=== PATIENT | male | born 1985 | race Caucasian/White ===

== ENCOUNTER 2017-06-02 17:49 | Inpatient (IN) | payer BC ==
--- NOTE | 2017-06-02 18:06 | PDOC ---
Rapid Medical Evaluation Chief Complaint: Injury Time Seen by Provider: 06/02/17 18:03 Medical Evaluation: Vital Signs Temp Pulse Resp BP Pulse Ox 98.1 F 100 H 19 131/83 98 06/02/17 17:59 06/02/17 17:59 06/02/17 17:59 06/02/17 17:59 06/02/17 17:59 06/02/17 18:03 The patient presents with a chief complaint of: Laceration to R cheek. Hit down his face on a metal stair, No LOC, headache. Last tetanus one year ago I have performed a brief in-person evaluation of this patient; Pertinent physical exam findings: 3 cm laceration to R cheek. APOLONIA BRAY I have ordered the following: Nothing The patient will proceed to the ED for further evaluation.
[2017-06-02 18:11] VITALS: BMI 27.3
--- NOTE | 2017-06-02 18:58 | PDOC ---
History of Present Illness <Liliana Lew - Last Filed: 06/02/17 20:57> - General History Source: Patient Exam Limitations: No Limitations - History of Present Illness Initial Comments: 06/02/17 19:00 Patient states was walking down a flight of metal stairs that were slippery and icy with garbage bags in his hands when he slipped and fell forward down multiple stairs, states more than 6 but is uncertain as to amount but thinks may be closer to 1 flight. States landed on his knees and banged his cheek and jaw on the ground or edge of the stair. Denies LOC but states he was dazed at the time. Complaints of mild knee pain bilaterally, and some generalized back and neck pain. Denies crepitus or step-offs, denies deformity numbness or tingling. States is generally in pain but no specific bones. Most complaint is with facial bones and jaw . Now complaints of pain to his right zygomatic arch, TMJ, with a laceration approximately 3 cm. Also has a contusion of his right lower lip but no laceration noted. Occurred: reports: this afternoon Severity: reports: mild, moderate Pain Location: reports: face Method of Injury: Yes: fall Modifying Factors: improves with: None Loss of Consciousness: no loss of consciousness Associated Symptoms (Fall): headache <Na Talbot - Last Filed: 06/03/17 07:29> - General Chief Complaint: Injury Stated Complaint: LACERATION Time Seen by Provider: 06/02/17 18:03 Past History <Liliana Lew - Last Filed: 06/02/17 20:57> - Travel Traveled outside of the country in the last 30 days: No Close contact w/someone who was outside of country & ill: No - Past Medical History COPD: No - Suicide/Smoking/Psychosocial Hx Smoking History: Never smoked Information on smoking cessation initiated: No Hx Alcohol Use: No Drug/Substance Use Hx: No Substance Use Type: None <Na Talbot - Last Filed: 06/03/17 07:29> - Past Medical History Allergies/Adverse Reactions: Allergies Allergy/AdvReac Type Severity Reaction Status Date / Time No Known Allergies Allergy Verified 06/02/17 18:03 Home Medications: Ambulatory Orders Clonazepam [Klonopin -] 0.5 mg PO DAILY 06/02/17 Review of Systems - Review of Systems Able to Perform ROS?: Yes Is the patient limited Citizen [place] proficient: Yes Constitutional: Yes: Symptoms Reported, See HPI, Malaise HEENTM: Yes: Symptoms Reported, See HPI. No: Nose Congestion Musculoskeletal: Yes: Symptoms Reported, See HPI, Joint Pain, Joint Swelling Integumentary: Yes: Symptoms Reported Neurological: Yes: Symptoms reported, See HPI, Headache All Other Systems: Reviewed and Negative <Na Talbot - Last Filed: 06/03/17 07:29> *Physical Exam - Vital Signs Last Vital Signs Temp Pulse Resp BP Pulse Ox 98.1 F 100 H 19 131/83 98 06/02/17 17:59 06/02/17 17:59 06/02/17 17:59 06/02/17 17:59 06/02/17 17:59 <Liliana Lew - Last Filed: 06/02/17 20:57> - Vital Signs Last Vital Signs Temp Pulse Resp BP Pulse Ox 98.1 F 100 H 19 131/83 98 06/02/17 17:59 06/02/17 17:59 06/02/17 17:59 06/02/17 17:59 06/02/17 17:59 - Physical Exam General Appearance: Yes: Nourished, Appropriately Dressed, Apparent Distress, Moderate Distress HEENT: positive: LUZMARIA, Normal ENT Inspection, TMs Normal, Pharynx Normal, Other (3 cm teardrop laceration to right mid zygomatic arch. Extending from inner canthus under eye to outer canthus, no bony deformity noted however has swelling and tenderness at the lateral aspect of zygomatic arch and TMJ Carbajal. No crepitus or step-offs, no nasal deformity, no orbital tenderness or crepitus. ) Neck: positive: Tender, Trachea midline, Supple (has muscular tnederness marie paravertebral spinous muscles. No true bone tenderness or crepitus along cervical spine but states is history of cervical disc herniation with intermittent tenderness history). negative: Lymphadenopathy (R), Lymphadenopathy (L) Respiratory/Chest: positive: Lungs Clear. negative: Normal Breath Sounds, Respiratory Distress Cardiovascular: positive: Regular Rate Gastrointestinal/Abdominal: positive: Soft. negative: Tender Musculoskeletal: positive: Normal Inspection, Other (superficial contusion to bilateral knees, no crepitus or step-offs, full range of motion and ambulatory without limp). negative: CVA Tenderness, Muscle Spasm (tenderness along cervical spine, history of cervical spine herniation but states does not feel re -exacerbation of that pain but has stiffness secondary to) Extremity: positive: Normal Capillary Refill, Normal Inspection, Normal Range of Motion Integumentary: positive: Normal Color, Other (facial laceration swelling and tenderness to right zygomatic arch. Has tenderness reproduced along the TMJ, and angle of mandible unable to open mouth completely secondary to pain at same. 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 NML intact, Fully Oriented, Alert, Normal Mood/ Affect, Normal Response, Motor Strength 5/5 <Na Talbot - Last Filed: 06/03/17 07:29> Procedures - Laceration/Wound Repair Right Face Wound Length: 2.6 to 5.0 cm Wound Explored: clean Wound's Depth, Shape: linear, flap Irrigated w/ Saline: Yes Betadine Prep: Yes Anesthesia: 1% Lidocaine Wound Repaired With: Sutures Suture Size/Type: 6:0 Number of Sutures: 10 <Na Talbot - Last Filed: 06/03/17 07:29> ED Treatment Course - Medications Given in the ED: ED Medications Discontinued Medications Generic Name Dose Route Start Last Admin Trade Name Ortizq PRN Reason Stop Dose Admin Ketorolac Tromethamine 60 mg 06/02/17 18:59 06/02/17 19:32 Toradol Injection - IM 06/02/17 19:00 60 mg ONCE ONE Administration <Liliana Lew - Last Filed: 06/02/17 20:57> - LABORATORY CBC & Chemistry Diagram: 06/03/17 00:00 06/03/17 00:00 <Na Talbot - Last Filed: 06/03/17 07:29> Progress Note - Progress Note Progress Note: Status post fall multiple stairs with facial injury and laceration. Suture repair performed, pending CAT scan of facial bones and head. Patient medicated with Toradol IM for pain relief. Case was turned over to our Mike TRIVEDI for remainder of testing and discharge planning. Updated patientr to plan <Na Talbot - Last Filed: 06/03/17 07:29> *DC/Admit/Observation/Transfer <Liliana Lew - Last Filed: 06/02/17 20:57> <Na Talbot - Last Filed: 06/03/17 07:29> Diagnosis at time of Disposition: Focal hemorrhagic contusion of cerebrum Facial laceration Qualifiers: Encounter type: initial encounter Qualified Code(s): S01.81XA - Laceration without foreign body of other part of head, initial encounter Superficial injury head Qualifiers: Encounter type: initial encounter Qualified Code(s): S00.90XA - Unspecified superficial injury of unspecified part of head, initial encounter Fall Qualifiers: Encounter type: initial encounter Qualified Code(s): W19.XXXA - Unspecified fall, initial encounter - Discharge Dispostion Condition at time of disposition: Stable
[2017-06-02] MEDS ORDERED: KETOROLAC TROMETHAMINE 60 MG/2 ML VIAL IM ONE (18:59)
[2017-06-02] MEDS ORDERED: KETOROLAC TROMETHAMINE 60 MG/2 ML VIAL ONE (19:28)
--- NOTE | 2017-06-02 21:45 | PDOC ---
ED Treatment Course - RADIOLOGY Radiology Studies Ordered: Category Date Time Status CERVICAL SPINE MRI W/O CONTR [MRI] Stat MRI 06/02/17 21:23 Ordered - Medications Given in the ED: ED Medications Discontinued Medications Generic Name Dose Route Start Last Admin Trade Name Jaydon PRN Reason Stop Dose Admin Ketorolac Tromethamine 60 mg 06/02/17 18:59 06/02/17 19:32 Toradol Injection - IM 06/02/17 19:00 60 mg ONCE ONE Administration Progress Note - Progress Note Progress Note: Took sign out on this patient from CHRIS Talbot. Pt fell down more than 6 stairs landing mostly on his face. Has tear drop laceration under right eye that was repaired by CHRIS Talbot. Is complaining of some right arm/shoulder numbness. Awaiting on facial bone and head CT. Head/Facial bone CT IMPRESSION: Subcentimeter hyperdensity within the inferior left frontal lobe is suspicious for acute hemorrhagic contusion. No mass effect, midline shift or hydrocephalus. No evidence of acute facial bone fracture. Intact mandibles and temporomandibular joints. Spoke with Dr. Morales, Neuro surgeon contract agent, and he reviewed the CT scan. He would like the patient to have a stat MRI of the cervical spine and to be admitted to Dr. Narayanan. Call placed to Dr. Narayanan for admission. Dr. Narayanan admits to hospitalist. [facility] hospitalist. Patient brought to MRI for stat MRI, approved by the MRI department. MRI cervical spine IMPRESSION: No evidence of acute injury to the major stabilizing ligaments in the cervical spine. Anatomic alignment of the cervical vertebra. Disc herniations at C3-C4 and C5-C6. No significant canal stenosis. No cervical cord compression. Ordered 2 percocet for pain. Spoke with CHRIS Gates who accepts admission for Dr. Castle. Dr. Morales in for consult. Pt signed out to CHRIS Levy in the main ER to continue plan. Nurse Jorge made aware as well. *DC/Admit/Observation/Transfer Diagnosis at time of Disposition: Focal hemorrhagic contusion of cerebrum Facial laceration Qualifiers: Encounter type: initial encounter Qualified Code(s): S01.81XA - Laceration without foreign body of other part of head, initial encounter Superficial injury head Qualifiers: Encounter type: initial encounter Qualified Code(s): S00.90XA - Unspecified superficial injury of unspecified part of head, initial encounter Fall Qualifiers: Encounter type: initial encounter Qualified Code(s): W19.XXXA - Unspecified fall, initial encounter - Discharge Dispostion Condition at time of disposition: Stable Admit: Yes - Referrals Referrals: Jeremiah Rodríguez [Primary Care Provider] - - Patient Instructions Additional Instructions: Keep wound clean and dry Avoid strenuous activity/exercise to create a hot or sweaty environment until sutures are removed Reapply bacitracin ointment 2 times a day until sutures are removed Return to emergency Department or private physician in 5-7 days for suture removal May use Tylenol or Motrin for pain relief Return immediately to emergency department for redness, swelling, pain, or signs of infection Rest, avoid strenuous activity or exercise for the next 24-48 hours May use ice on contusions as needed. May use Tylenol or Motrin for pain relief Watch and seek evaluation for changes in behavior including crankiness, inconsolability, quietness/ sleepiness that is inappropriate, tiredness that is inappropriate, watch for worsening and changes of behavior. Seek immediate evaluation/return to emergency department for vomiting, mental status changes, pain that's out of proportion , bloody drainage from ears or nose. Followup with private physician as needed in one to 2 days for reevaluation - Post Discharge Activity Forms/Work/School Notes: Back to Work
[2017-06-03 01:19] LABS: BASO % 0.8 % (0-2.0); EOS % 0.4 % (0-4.5); HEMATOCRIT 40.3 % (35.4-49); HEMOGLOBIN 13.1 GM/dL (11.7-16.9); LYMPH % 20.3 % (8-40); MCH 25.9 pg (25.7-33.7); MCHC 32.5 g/dl (32.0-35.9); MEAN CELL VOLUME 79.6 fl (80-96); MEAN PLT VOLUME 7.8 fl (7.5-11.1); MONO % 7.7 % (3.8-10.2); NEUT % 70.8 % (42.8-82.8); PLATELET COUNT 277 K/MM3 (134-434); RBC 5.07 M/mm3 (4.00-5.60); RDW 14.4 % (11.9-15.9); WHITE BLOOD COUNT 12.9 K/mm3 (4.0-10.0)
[2017-06-03 01:33] LABS: INR 1.04 (0.82-1.09); PROTHROMBIN TIME (PATIENT) 11.8 SEC (9.98-11.88)
[2017-06-03 01:57] LABS: ALBUMIN 3.7 g/dl (3.4-5.0); ANION GAP 7 (8-16); BLOOD UREA NITROGEN 14 mg/dL (7-18); CALCIUM 8.7 mg/dL (8.5-10.1); CHLORIDE 103 mmol/L (98-107); CO2 28 mmol/L (21-32); GLUCOSE,RANDOM 95 mg/dL (74-106); POTASSIUM 3.6 mmol/L (3.5-5.1); SGOT/AST 16 U/L (15-37); SGPT/ALT 28 U/L (12-78); SODIUM 138 mmol/L (136-145)
[2017-06-03 02:00] LABS: ALK PHOS 105 U/L (45-117); BILIRUBIN,TOTAL 0.7 mg/dL (0.2-1.0); TOT PROT 7.3 g/dl (6.4-8.2)
--- NOTE | 2017-06-03 04:02 | HP ---
CHIEF COMPLAINT: Fall PCP: Dr. Jeremiah Rodríguez HISTORY OF PRESENT ILLNESS: This is a 31 y/o man with a past medial history of Anxiety, Insomnia. Who presents to the ED s/p fall down stairs with a laceration/head injury x 1 day. Patient reports slipping down the stairs while taking out the garbage. Patient reports falling forward and hitting his face/head. He reports back and neck pain. Patient denies LOC, blurred vision, nausea, vomiting, headache. Patient denies fever, chills, cough, SOB, CP, palpitations, AP, N/V/D. TD is UTD per patient ER course was notable for: (1) Head CT- Subcentimeter hyperdensity within the inferior lobe is suspicious for acute hemorrhagic contusion, Janet mass effect, midline shift or hydrocephalus (2) Facial bones CT: No evidence of acute facial bone fracture. 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 Family History: Father: HLD Grandfather: CAD, DM Grandmother: HTN Allergies No Known Allergies Allergy (Verified 06/02/17 18:03) HOME MEDICATIONS: Home Medications Medication Instructions Recorded Clonazepam [Klonopin -] 0.5 mg PO DAILY 06/02/17 REVIEW OF SYSTEMS CONSTITUTIONAL: Absent: fever, chills, diaphoresis, generalized weakness, malaise, loss of appetite, weight change HEENT: Absent: rhinorrhea, nasal congestion, throat pain, throat swelling, difficulty swallowing, mouth swelling, ear pain, eye pain, visual changes CARDIOVASCULAR: Absent: chest pain, syncope, palpitations, irregular heart rate, lightheadedness , peripheral edema RESPIRATORY: Absent: cough, shortness of breath, dyspnea with exertion, orthopnea, wheezing, stridor, hemoptysis GASTROINTESTINAL: Absent: abdominal pain, abdominal distension, nausea, vomiting, diarrhea, constipation, melena, hematochezia GENITOURINARY: Absent: dysuria, frequency, urgency, hesitancy, hematuria, flank pain, genital pain MUSCULOSKELETAL: neck pain, back pain, R-shoulder pain Absent: myalgia, arthralgia, joint swelling SKIN: laceration to R-orbit Absent: rash, itching, pallor HEMATOLOGIC/IMMUNOLOGIC: Absent: easy bleeding, easy bruising, lymphadenopathy, frequent infections ENDOCRINE: Absent: unexplained weight gain, unexplained weight loss, heat intolerance, cold intolerance NEUROLOGIC: paresthesias Absent: headache, focal weakness, dizziness, unsteady gait, seizure, mental status changes, bladder or bowel incontinence PSYCHIATRIC: Absent: anxiety, depression, suicidal or homicidal ideation, hallucinations. PHYSICAL EXAMINATION Vital Signs - 24 hr 06/02/17 06/02/17 06/03/17 17:59 23:14 03:03 Temperature 98.1 F Pulse Rate 100 H Pulse Rate [ 96 H 88 Left Radial] Respiratory 19 20 15 Rate Blood Pressure 131/83 Blood Pressure 128/69 130/76 [Left Arm] O2 Sat by Pulse 98 98 98 Oximetry (%) GENERAL: Awake, alert, and fully oriented, in no acute distress. HEAD: Normal with no signs of trauma. EYES: Pupils equal, round and reactive to light, extraocular movements intact, sclera anicteric, conjunctiva clear. No lid lag. EARS, NOSE, THROAT: Ears normal, nares patent, oropharynx clear without exudates. Moist mucous membranes. NECK: Normal range of motion, supple without lymphadenopathy, JVD, or masses. LUNGS: Breath sounds equal, clear to auscultation bilaterally. No wheezes, and no crackles. No accessory muscle use. HEART: Regular rate and rhythm, normal S1 and S2 without murmur, rub or gallop. ABDOMEN: Soft, nontender, not distended, normoactive bowel sounds, no guarding, no rebound, no masses. No hepatomegaly or splenomegaly. MUSCULOSKELETAL: Normal range of motion at all joints. No bony deformities. No CVA tenderness. mid scapula tenderness UPPER EXTREMITIES: 2+ pulses, warm, well-perfused. No cyanosis. No clubbing. No peripheral edema. LOWER EXTREMITIES: 2+ pulses, warm, well-perfused. No calf tenderness. No peripheral edema. NEUROLOGICAL: Cranial nerves II-XII intact. Normal speech. Gait not observed. PSYCHIATRIC: Cooperative. Good eye contact. Appropriate mood and affect. SKIN: Warm, dry, normal turgor, normal capillary refill. +teardrop wound to r- orbit- sutures intact Laboratory Results - last 24 hr 06/03/17 06/03/17 06/03/17 00:00 00:00 00:00 WBC 12.9 H RBC 5.07 Hgb 13.1 Hct 40.3 MCV 79.6 L MCH 25.9 MCHC 32.5 RDW 14.4 Plt Count 277 MPV 7.8 Neutrophils % 70.8 Lymphocytes % 20.3 Monocytes % 7.7 Eosinophils % 0.4 Basophils % 0.8 PT with INR 11.80 INR 1.04 Sodium 138 Potassium 3.6 Chloride 103 Carbon Dioxide 28 Anion Gap 7 L BUN 14 Creatinine 1.0 Creat Clearance w eGFR > 60 Random Glucose 95 Calcium 8.7 Total Bilirubin 0.7 AST 16 ALT 28 Alkaline Phosphatase 105 Total Protein 7.3 Albumin 3.7 Blood Type Antibody Screen 06/03/17 00:00 WBC RBC Hgb Hct MCV MCH MCHC RDW Plt Count MPV Neutrophils % Lymphocytes % Monocytes % Eosinophils % Basophils % PT with INR INR Sodium Potassium Chloride Carbon Dioxide Anion Gap BUN Creatinine Creat Clearance w eGFR Random Glucose Calcium Total Bilirubin AST ALT Alkaline Phosphatase Total Protein Albumin Blood Type O POSITIVE Antibody Screen Negative ASSESSMENT/PLAN: 31 y/o man with a PMHx Anxiety, Insomnia. Admitted to Telemetry ? Acute Hemorrhagic Contusion, secondary to fall. Head Injury Problem 1. Head Injury secondary to Fall 2. Acute Hemorrhagic Contusion 3. Acute Lumbar Pain 4. R- face/jaw pain 5. Anxiety/Insomnia 6. Leukocytosis Plan: Acute Hemorrhagic Contusion Continue Tele monitoring CT Brain- reviewed CT Facial Bones- reviewed MRI c-Spine- reviewed Appreciate Neurology and Neurosurgery consults Icepack to face q20min off/on Neuro checks Monitor vitals Repeat CBC tomorrow, likely reactive, will no treat empirically. Patient does not appear toxic DVT Prophylaxis- SCDs, Heparin SQ Problem List - Problem (1) Focal hemorrhagic contusion of cerebrum Code(s): S06.339A - CONTUS/LAC CEREB, W LOC OF UNSP DURATION, INIT (2) Fall Code(s): W19.XXXA - UNSPECIFIED FALL, INITIAL ENCOUNTER Qualifiers: Encounter type: initial encounter Qualified Code(s): W19.XXXA - Unspecified fall, initial encounter (3) Facial laceration Code(s): S01.81XA - LACERATION W/O FOREIGN BODY OF OTH PART OF HEAD, INIT ENCNTR Qualifiers: Encounter type: initial encounter Qualified Code(s): S01.81XA - Laceration without foreign body of other part of head, initial encounter (4) Anxiety Code(s): F41.9 - ANXIETY DISORDER, UNSPECIFIED (5) DVT prophylaxis Code(s): [id number] - Visit type - Emergency Visit Emergency Visit: Yes ED Registration Date: 06/02/17 Care time: The patient presented to the Emergency Department on the above date and was hospitalized for further evaluation of their emergent condition. - New Patient This patient is new to me today: Yes Date on this admission: 06/03/17 - Critical Care Critical Care patient: No
[2017-06-03] MEDS ORDERED: DEXTROSE 5%-0.45% SALINE 1,000 ML IV SCH (04:15)
[2017-06-03] MEDS ORDERED: morphine CARPU-JECT 2 MG/1 ML DISP.SYRIN IVPUSH PRN (05:20)
[2017-06-03] MEDS ORDERED: ONDANSETRON 4 MG/2 ML VIAL IVPUSH PRN (05:21)
--- NOTE | 2017-06-03 09:40 | EKG ---
Test Reason : Blood Pressure : / mmHG Vent. Rate : 071 BPM Atrial Rate : 071 BPM P-R Int : 168 ms QRS Dur : 092 ms QT Int : 416 ms P-R-T Axes : 050 049 019 degrees QTc Int : 452 ms NORMAL SINUS RHYTHM EARLY REPOLARIZATION NORMAL ECG NO PREVIOUS ECGS AVAILABLE Confirmed by MD MARIE, MARY JANE ([id number]) on 06/03/2017 9:39:46 AM Referred By: Confirmed By:MARY JANE SALAZAR MD
[2017-06-03] MEDS: morphine CARPU-JECT 10 MG/1 ML DISP.SYRIN IVPUSH PRN ×2 (10:40→15:27)
[2017-06-03] MEDS ORDERED: BACITRACIN 15 GM TUBE TOPICAL OINTMENT ONE (12:09)
[2017-06-03] MEDS ORDERED: clonazePAM 0.5 MG TABLET PO PRN (13:03)
--- NOTE | 2017-06-03 13:04 | PN ---
Progress Note, Physician Chief Complaint: patient s/p fall going down the stairs hit his head has a face laceration and snow shoulder discomfort no MUNOZ ambulating the hallways down graded to med surg floor - Current Medication List Current Medications: Active Medications Dextrose/Sodium Chloride (D5-1/2ns -) 1,000 mls @ 83 mls/hr IV ASDIR YAMIL Last Admin: 06/03/17 05:05 Dose: 83 mls/hr Morphine Sulfate (Morphine Injection -) 2 mg IVPUSH Q4H PRN PRN Reason: PAIN LEVEL 4 - 6 Last Admin: 06/03/17 10:40 Dose: 2 mg Ondansetron HCl (Zofran Injection) 4 mg IVPUSH Q6H PRN PRN Reason: NAUSEA - Objective Vital Signs: Vital Signs Temperature 98.1 F 06/02/17 17:59 Pulse Rate 96 H 06/03/17 07:00 Respiratory Rate 18 06/03/17 07:00 Blood Pressure 101/57 06/03/17 07:00 O2 Sat by Pulse Oximetry (%) 97 06/03/17 07:00 Constitutional: Yes: Calm HENT: Yes: Other (facial laceration sutured) Cardiovascular: Yes: Regular Rate and Rhythm, S1, S2 Respiratory: Yes: CTA Bilaterally Gastrointestinal: Yes: Normal Bowel Sounds, Soft Edema: No Neurological: Yes: Alert, Oriented Labs: CBC, BMP 06/03/17 00:00 06/03/17 00:00 INR, PTT INR 1.04 (0.82-1.09) 06/03/17 00:00 Problem List - Problems (1) Focal hemorrhagic contusion of cerebrum Assessment/Plan: neurology and ANDREA consult pending MRI of neck shows disc bulge which according to patient is old Head CT scan shows hyderdensity which suspicious for hemorrhagic contusion possible discharge later today if cleared by both services Code(s): S06.339A - CONTUS/LAC CEREB, W LOC OF UNSP DURATION, INIT (2) Anxiety Assessment/Plan: klonopin Code(s): F41.9 - ANXIETY DISORDER, UNSPECIFIED (3) Facial laceration Assessment/Plan: sutured Code(s): S01.81XA - LACERATION W/O FOREIGN BODY OF OTH PART OF HEAD, INIT ENCNTR Qualifiers: Encounter type: initial encounter Qualified Code(s): S01.81XA - Laceration without foreign body of other part of head, initial encounter
--- NOTE | 2017-06-03 13:08 | DS ---
Physical Examination Vital Signs: Vital Signs Temperature 98.1 F 06/02/17 17:59 Pulse Rate 96 H 06/03/17 07:00 Respiratory Rate 18 06/03/17 07:00 Blood Pressure 101/57 06/03/17 07:00 O2 Sat by Pulse Oximetry (%) 97 06/03/17 07:00 Constitutional: Yes: Calm HENT: Yes: Other (facial laceration sutured) Cardiovascular: Yes: Regular Rate and Rhythm, S1, S2 Respiratory: Yes: CTA Bilaterally Gastrointestinal: Yes: Normal Bowel Sounds, Soft Edema: No Neurological: Yes: Alert, Oriented Labs: CBC, BMP 06/03/17 00:00 06/03/17 00:00 Discharge Summary Reason For Visit: FALL,FOCAL HEMMORHAGIC CONSTUSION OF CEREBRUM Current Active Problems Anxiety (Acute) DVT prophylaxis (Acute) Facial laceration (Acute) Fall (Acute) Focal hemorrhagic contusion of cerebrum (Acute) Superficial injury head (Acute) Hospital Course: CHIEF COMPLAINT: Fall PCP: Dr. Jeremiah Rodríguez HISTORY OF PRESENT ILLNESS: This is a 31 y/o man with a past medial history of Anxiety, Insomnia. Who presents to the ED s/p fall down stairs with a laceration/head injury x 1 day. Patient reports slipping down the stairs while taking out the garbage. Patient reports falling forward and hitting his face/head. He reports back and neck pain. Patient denies LOC, blurred vision, nausea, vomiting, headache. Patient denies fever, chills, cough, SOB, CP, palpitations, AP, N/V/D. TD is UTD per patient ER course was notable for: (1) Head CT- Subcentimeter hyperdensity within the inferior lobe is suspicious for acute hemorrhagic contusion, Janet mass effect, midline shift or hydrocephalus (2) Facial bones CT: No evidence of acute facial bone fracture. 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 Family History: Father: HLD Grandfather: CAD, DM Grandmother: HTN Allergies No Known Allergies Allergy (Verified 06/02/17 18:03) in hospital : facial laceration sutured ct head done shows hyperdensity suspiciuos for hemorrhagic contusion mri of spine noted for neck bulge patient ambulation the hallways no MUNOZ no neck pain ANDREA and Neurology to see patient Condition: Stable - Instructions Diet, Activity, Other Instructions: Keep wound clean and dry Avoid strenuous activity/exercise to create a hot or sweaty environment until sutures are removed Reapply bacitracin ointment 2 times a day until sutures are removed Return to emergency Department or private physician in 5-7 days for suture removal May use Tylenol or Motrin for pain relief Return immediately to emergency department for redness, swelling, pain, or signs of infection Rest, avoid strenuous activity or exercise for the next 24-48 hours May use ice on contusions as needed. May use Tylenol or Motrin for pain relief Watch and seek evaluation for changes in behavior including crankiness, inconsolability, quietness/ sleepiness that is inappropriate, tiredness that is inappropriate, watch for worsening and changes of behavior. Seek immediate evaluation/return to emergency department for vomiting, mental status changes, pain that's out of proportion , bloody drainage from ears or nose. Followup with private physician as needed in one to 2 days for reevaluation Referrals: Jeremiah Rodríguez [Primary Care Provider] - - Home Medications Comprehensive Discharge Medication List: Ambulatory Orders Clonazepam [Klonopin -] 0.5 mg PO DAILY 06/02/17
[2017-06-03] MEDS ORDERED: clonazePAM 0.5 MG TABLET ONE (13:26)
[2017-06-03] MEDS ORDERED: morphine CARPU-JECT 10 MG/1 ML DISP.SYRIN ONE (15:26)
--- NOTE | 2017-06-03 15:39 | CONSULT ---
Consult - text type - Consultation Consultation Note: Neurosurgery Consultation Gael Kimbrough is a 31 year old Latin male who fell yesterday on icy, metal stairs while taking out the trash. He denies loss of consciousness, but was somewhat woozy afterwards. He had a recent laceration on his Right malar eminence which was closed with adhesive strips and this opened up after the fall. Head CT demonstrated a small Left inferior frontal hyperdensity which may be a contusion versus volume averaging from a supraorbital ridge. Patient was observed for one day and repeat CT was unremarkable. The patient also describes neck pain with some radiation to his Right upper extremity. The patient has a 2 year history of Right arm radicular pain which has not responded to conservative efforts. He has Right C8 numbness and some triceps weakness. MRI Cervical is limited quality due to motion artifact, however Right and Left sided herniated discs are noted. I feel that the patient can be discharged and I will see him in the office next month to discuss better quality imaging of the Cervical spine and the risks, benefits and alternatives to ACDF which would likely relieve his chronic Right arm radicular pain associated with numbness and paresthesias as well as Right arm weakness. The patient verbalizes an understanding and has been given contact information.
--- NOTE | 2017-06-03 15:39 | CONSULT ---
Consult - text type - Consultation Consultation Note: Neurology History of Present Illness 31 y/o M was walking down a flight of metal stairs that were slippery and icy with garbage bags in his hands when he slipped and fell forward down multiple stairs, states more than 6 but is uncertain as to amount but thinks may be closer to 1 flight. Stated that he landed on his knees and banged his cheek and jaw on the ground or edge of the stair. Denies LOC but states he was dazed at the time. CT head was completed and showed L frontal contusion. Complaints of mild knee pain bilaterally, and some generalized back and neck pain. Has laceration approximately 3 cm. Also has a contusion of his right lower lip but no laceration noted. CT facial bones also completed and did not show any fracture. MRI C spine done and reviewed and showed disc herniations of C3/C4 and C5/C6 which the patient believed was old. Past History - Travel Traveled outside of the country in the last 30 days: No Close contact w/someone who was outside of country & ill: No - Past Medical History COPD: No - Suicide/Smoking/Psychosocial Hx Smoking History: Never smoked Information on smoking cessation initiated: No Hx Alcohol Use: No Drug/Substance Use Hx: No Substance Use Type: None - Past Medical History Allergies/Adverse Reactions: Allergies Allergy/AdvReac Type Severity Reaction Status Date / Time No Known Allergies Allergy Verified 06/02/17 18:03 Home Medications: Ambulatory Orders Clonazepam [Klonopin -] 0.5 mg PO DAILY 06/02/17 Review of Systems - Review of Systems Able to Perform ROS?: Yes Is the patient limited Indonesian proficient: Yes Constitutional: Yes: Symptoms Reported, See HPI, Malaise HEENTM: Yes: Symptoms Reported, See HPI. No: Nose Congestion Musculoskeletal: Yes: Symptoms Reported, See HPI, Joint Pain, Joint Swelling Integumentary: Yes: Symptoms Reported Neurological: Yes: Symptoms reported, See HPI, Headache All Other Systems: Reviewed and Negative *Physical Exam Vital Signs Period Temp Pulse Resp BP Sys/Ledezma Pulse Ox Last 24 Hr 98.1 F-98.2 F 79-100 15-20 101-131/57-83 97-98 - Physical Exam General Appearance: Yes: Nourished, Appropriately Dressed, Apparent Distress, Moderate Distress HEENT: positive: LUZMARIA, Normal ENT Inspection, TMs Normal, Pharynx Normal, Other (3 cm teardrop laceration to right mid zygomatic arch. Extending from inner canthus under eye to outer canthus, no bony deformity noted however has swelling and tenderness at the lateral aspect of zygomatic arch and TMJ Carbajal. No crepitus or step-offs, no nasal deformity, no orbital tenderness or crepitus. ) Neck: positive: Tender, Trachea midline, Supple (has muscular tnederness marie paravertebral spinous muscles. No true bone tenderness or crepitus along cervical spine but states is history of cervical disc herniation with intermittent tenderness history). negative: Lymphadenopathy (R), Lymphadenopathy (L) Respiratory/Chest: positive: Lungs Clear. negative: Normal Breath Sounds, Respiratory Distress Cardiovascular: positive: Regular Rate Gastrointestinal/Abdominal: positive: Soft. negative: Tender Musculoskeletal: positive: Normal Inspection, Other (superficial contusion to bilateral knees, no crepitus or step-offs, full range of motion and ambulatory without limp). negative: CVA Tenderness, Muscle Spasm (tenderness along cervical spine, history of cervical spine herniation but states does not feel re -exacerbation of that pain but has stiffness secondary to) Extremity: positive: Normal Capillary Refill, Normal Inspection, Normal Range of Motion Integumentary: positive: Normal Color, Other (facial laceration swelling and tenderness to right zygomatic arch. Has tenderness reproduced along the TMJ, and angle of mandible unable to open mouth completely secondary to pain at same. 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: financial analyst II-XII NML intact, Fully Oriented, Alert, Normal Mood/ Affect, Normal Response, Motor Strength 5/5 CBCD WBC 12.9 K/mm3 (4.0-10.0) H 06/03/17 00:00 RBC 5.07 M/mm3 (4.00-5.60) 06/03/17 00:00 Hgb 13.1 GM/dL (11.7-16.9) 06/03/17 00:00 Hct 40.3 % (35.4-49) 06/03/17 00:00 MCV 79.6 fl (80-96) L 06/03/17 00:00 MCHC 32.5 g/dl (32.0-35.9) 06/03/17 00:00 RDW 14.4 % (11.9-15.9) 06/03/17 00:00 Plt Count 277 K/MM3 (134-434) 06/03/17 00:00 MPV 7.8 fl (7.5-11.1) 06/03/17 00:00 CMP Sodium 138 mmol/L (136-145) 06/03/17 00:00 Potassium 3.6 mmol/L (3.5-5.1) 06/03/17 00:00 Chloride 103 mmol/L (98-107) 06/03/17 00:00 Carbon Dioxide 28 mmol/L (21-32) 06/03/17 00:00 Anion Gap 7 (8-16) L 06/03/17 00:00 BUN 14 mg/dL (7-18) 06/03/17 00:00 Creatinine 1.0 mg/dL (0.7-1.3) 06/03/17 00:00 Creat Clearance w eGFR > 60 (>60) 06/03/17 00:00 Calcium 8.7 mg/dL (8.5-10.1) 06/03/17 00:00 Total Bilirubin 0.7 mg/dL (0.2-1.0) 06/03/17 00:00 AST 16 U/L (15-37) 06/03/17 00:00 ALT 28 U/L (12-78) 06/03/17 00:00 Alkaline Phosphatase 105 U/L (45-117) 06/03/17 00:00 Total Protein 7.3 g/dl (6.4-8.2) 06/03/17 00:00 Albumin 3.7 g/dl (3.4-5.0) 06/03/17 00:00 CT head, MRI C spine, CT facial bones reviewed as above Plan: 31 y/o M was walking down a flight of metal stairs that were slippery and icy with garbage bags in his hands when he slipped and fell forward down multiple stairs, states more than 6 but is uncertain as to amount but thinks may be closer to 1 flight. Stated that he landed on his knees and banged his cheek and jaw on the ground or edge of the stair. Denies LOC but states he was dazed at the time. CT head was completed and showed L frontal contusion. Complaints of mild knee pain bilaterally, and some generalized back and neck pain. Has laceration approximately 3 cm. Also has a contusion of his right lower lip but no laceration noted. CT facial bones also completed and did not show any fracture. MRI C spine done and reviewed and showed disc herniations of C3/C4 and C5/C6 which the patient believed was old. NSGY consulted as well. Patient asymptomatic, assuming no NSGY intervention, would recommended repeat CT head in 2-4 weeks. Can have outpatient followup. Would emphasize strict avoidance any further head trauma. Caution with slip and falls, avoid heavy lifting. Avoid NSAIDS for 2 weeks. Can take Tylenol for headache if needed.
[2017-06-03 15:42] VITALS: BP 123/78; PULSE 72; TEMP 98.3
== END 2017-06-03 16:00 | disposition home or self-care (01) | DRG 604 ==
LOC: JERFT 17:49 → JER 17:49 → JERBED 22:32 → J6S 23:38 → JERBED 06-03 05:09
PROVIDERS: ADMIT Family Medicine; ATTEND Family Medicine
PROC: 0HQ1XZZ Repair Face Skin, External Approach (ICD-10-PCS; principal; 2017-06-02)
DX: S01.411A Laceration without foreign body of right cheek and temporomandibular area, initial encounter (principal); S06.331A Contusion and laceration of cerebrum, unspecified, with loss of consciousness of 30 minutes or less, initial encounter; W01.190A Fall on same level from slipping, tripping and stumbling with subsequent striking against furniture, initial encounter; Y93.89 Activity, other specified; Y92.89 Other specified places as the place of occurrence of the external cause; Y99.8 Other external cause status; F41.9 Anxiety disorder, unspecified; G47.00 Insomnia, unspecified; M54.5 Low back pain; D72.829 Elevated white blood cell count, unspecified
CPT/HCPCS: 36415; 70450-TC; 70486-TC; 72141-TC; 80053; 85025; 85610; 86850; 86900; 86901; 93005; 93010; 99285-25

== ENCOUNTER 2017-10-04 01:12 | Emergency (ER) | payer BC, OTHER ==
[2017-10-04 02:21] VITALS: BP 121/90; PULSE 86; TEMP 96.8; BMI 28.0
[2017-10-04] MEDS ORDERED: ACETAMINOPHEN 325 MG TABLET (FP) PO ONE (02:50)
--- NOTE | 2017-10-04 02:51 | PDOC ---
History of Present Illness - General Chief Complaint: Injury Stated Complaint: INJURY ELBOW SHOULDER BACK Time Seen by Provider: 10/04/17 02:38 History Source: Patient Exam Limitations: No Limitations - History of Present Illness Initial Comments: 10/04/17 02:51 32y hx of cervical disc herniations, presents with complaint of back p ain and elbow pain. 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 pt compliaining of pain to r hip and r elbow. pt denies any numbness/tingling/ weakness. no head injury, LOC, n/v, vision changes, cp, sob, abd pain. Past History - Past Medical History Allergies/Adverse Reactions: Allergies Allergy/AdvReac Type Severity Reaction Status Date / Time No Known Allergies Allergy Verified 10/04/17 02:21 Home Medications: Ambulatory Orders clonazePAM [Klonopin -] 0.5 mg PO DAILY 06/02/17 COPD: No - Suicide/Smoking/Psychosocial Hx Smoking History: Never smoked Have you smoked in the past 12 months: No Information on smoking cessation initiated: No Hx Alcohol Use: Yes Drug/Substance Use Hx: No Substance Use Type: None Review of Systems - Review of Systems Able to Perform ROS?: Yes Comments:: 10/04/17 03:01 HEENT: no reported vision changes Respiratory: no reported cough, sob, hemoptysis Cardiac: no reported chest pain, palpitations, light headedness, leg swelling Abd/GI: no reported abd pain, nausea, vomiting, Musculskelatal - +r elbow pain, r lower back pain no reported joint swelling skin - no reported bruising, erythema, rash neurological: no reported headache, numbness, focal weakness, tingling, ataxia, *Physical Exam - Vital Signs Last Vital Signs Temp Pulse Resp BP Pulse Ox 96.8 F L 86 18 121/90 99 10/04/17 02:18 10/04/17 02:18 10/04/17 02:18 10/04/17 02:18 10/04/17 02:18 - Physical Exam Comments: 10/04/17 03:01 GENERAL: The patient is awake, alert, and fully oriented, Nontoxic - in no acute distress. HEAD: Normocephalic, atraumatic. EYES: extraocular movements intact, sclera anicteric, conjunctiva clear. ENT: Normal voice, Moist mucous membranes. NECK: Normal range of motion, supple BACK: No focal bony tenderness in thoracic, lumbar, cervical spine. +parspinal tenderness on r lower back Musculoskelatal: FROM of b/l shoulders, elbows, wrist. FROM of hips, knees, ankles - No signs of ecchymosis, erythema, or crepitus noted on palpation extremities, chest wall, clavicals, ribs, back. TTP on r elbow but w/ normal ROM without any obvious deformity NEUROLOGICAL: No facial assymetry, Normal speech, moving all 4 extremity spontaneously and symmetrically SKIN: Warm, Dry, normal turgor, ED Treatment Course - RADIOLOGY Radiology Studies Ordered: Category Date Time Status ELBOW-LEFT [RAD] Stat Radiology 10/04/17 02:50 Ordered Medical Decision Making - Medical Decision Making 10/04/17 03:03 Suspect back spasms, contusion of the elbow Obtain x-ray to rule out fracture as the patient is tender at the r olecranon Tylenol for pain 10/04/17 03:32 xray neg for fx will dc the pt with pmd fu return precutions were discussed I discussed the physical exam findings, ancillary test results and final diagnoses with the patient. I answered all of the patient's questions. The patient was satisfied with the care received and felt comfortable with the discharge plan and treatment plan. The patient will call their primary care physician within 24 hours to arrange follow-up and will return to the Emergency Department with any new, persistent or worsening symptoms. *DC/Admit/Observation/Transfer Diagnosis at time of Disposition: Elbow pain, left Low back pain Qualifiers: Chronicity: acute Back pain laterality: right Sciatica presence: without sciatica Qualified Code(s): M54.5 - Low back pain - Discharge Dispostion Disposition: HOME Condition at time of disposition: Improved Decision to Admit order: No - Referrals Referrals: Jeremiah Rodríguez [Primary Care Provider] - - Patient Instructions Printed Discharge Instructions: DI for Low Back Pain, How to Prevent Falls, DI for Elbow Pain Additional Instructions: Return to the emergency department immediately with ANY new, persistent or worsening symptoms including numbness, tingling, weakness, fevers or any other concerns. Take ibuprofen (400mg)/tylenol(650mg) every 6 hours for 2 days. Apply heat to your sore muscles. You MUST call and follow up with your doctor in 2-3 days for further evaluation of your symptoms. Your emergency department visit is not complete without a followup with your doctor for reevaluation.. Results were discussed with you. Please make sure your doctor reviews the results of your emergency evaluation. Print Language: BULGARIAN - Post Discharge Activity Forms/Work/School Notes: Back to Work
[2017-10-04] MEDS ORDERED: ACETAMINOPHEN 325 MG TABLET (FP) ONE (02:59)
== END 2017-10-04 03:55 | disposition home or self-care (01) ==
LOC: JER 01:12
DX: S39.82XA Other specified injuries of lower back, initial encounter (principal); M54.5 Low back pain; M25.521 Pain in right elbow; M25.551 Pain in right hip; W01.0XXA Fall on same level from slipping, tripping and stumbling without subsequent striking against object, initial encounter; Y93.01 Activity, walking, marching and hiking; Y92.098 Other place in other non-institutional residence as the place of occurrence of the external cause; Y99.0 Civilian activity done for income or pay
CPT/HCPCS: 73070-TC-LT-FY; 99282-25

== ENCOUNTER 2018-04-27 19:36 | Emergency (ER) | payer BC, OTHER ==
[2018-04-27 19:55] VITALS: BP 118/52; PULSE 84; TEMP 98; BMI 26.5
--- NOTE | 2018-04-27 19:55 | PDOC ---
Rapid Medical Evaluation Time Seen by Provider: 04/27/18 19:50 Medical Evaluation: Allergies Allergy/AdvReac Type Severity Reaction Status Date / Time No Known Allergies Allergy Verified 10/04/17 02:21 I have performed a brief in-person evaluation of this patient. The patient presents with a chief complaint of: left sided neck pain. has been taking aleve Pertinent physical exam findings: pain with lateral neck movements I have ordered the following: nothing The patient will proceed to the ED for further evaluation. Discharge Disposition - Diagnosis Neck pain - Referrals - Patient Instructions - Post Discharge Activity
[2018-04-27] MEDS ORDERED: KETOROLAC TROMETHAMINE 30 MG/1 ML VIAL IM ONE (20:52)
[2018-04-27] MEDS ORDERED: diazePAM 5 MG TABLET PO ONE (20:52)
--- NOTE | 2018-04-27 20:58 | PDOC ---
History of Present Illness - General Chief Complaint: Head/Neck problem Stated Complaint: NECK/LT SHOULDER PAIN Time Seen by Provider: 04/27/18 19:50 History Source: Patient Exam Limitations: No Limitations - History of Present Illness Initial Comments: 04/27/18 20:52 HISTORY OF PRESENT ILLNESS: 32-year-old male with past medical history of cervical radiculopathy and multiple slipped disks in his neck who presents emergency department for evaluation of left lateral neck pain radiating to left shoulder for the past 4 days. Patient states his usual radiculopathy pain is on his right side and is scheduled to see paintless dent repair technician for steroid injections at the end of this month. 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 Patient denies any loss of sensation or weakness in his upper extremities. No recent travel or sick contacts. PAST MEDICAL HISTORY: Cervical radiculopathy SURGICAL HISTORY: Denies ALLERGIES: No known drug allergies REVIEW OF SYSTEMS General/Constitutional: Denies fever or chills. Denies weakness, weight change. HEENT: Denies change in vision. Denies ear pain or discharge. Denies sore throat. Cardiovascular: Denies chest pain or shortness of breath. Respiratory: Denies cough, wheezing, or hemoptysis. Gastrointestinal: Denies nausea, vomiting, diarrhea or constipation. Denies rectal bleeding. Genitourinary: Denies dysuria, frequency, or change in urination. Musculoskeletal: Left lateral neck and left shoulder pain. Skin and breasts: Denies rash or easy bruising. Neurologic: Denies headache, vertigo, loss of consciousness, or loss of sensation. Psychiatric: Denies depression or anxiety. Endocrine: Denies increased thirst. Denies abnormal weight change. Hematologic/Lymphatic: Denies anemia, easy bleeding, or history of blood clots. Allergic/Immunologic: Denies hives or skin allergy. Denies latex allergy. PHYSICAL EXAM General Appearance: Well-appearing, appropriately dressed. No apparent distress , no intoxication. HEENT: EOMI, PERRLA, normal ENT inspection, normal voice, TMs normal, pharynx normal. No conjunctival pallor. No photophobia, scleral icterus. Neck: Supple. Trachea midline. No tenderness, rigidity, carotid bruit, stridor , lymphadenopathy, or thyromegaly. Respiratory/Chest: Lungs CTAB. No shortness of breath, chest tenderness, respiratory distress, accessory muscle use. No crackles, rales, rhonchi, stridor , wheezing, dullness Cardiovascular: RRR. S1, S2. No JVD, murmur, bradycardia, tachycardia. Vascular Pulses: Dorsalis-Pedis (R): 2+, Dorsalis-Pedis (L): 2+ Gastrointestinal/Abdominal: Normal bowel sounds. Abdomen soft, non-distended. No tenderness or rebound tenderness. No organomegaly, pulsatile mass, guarding, hernia, hepatomegaly, splenomegaly. Lymphatic: No adenopathy, tenderness. Musculoskeletal/Extremities: Normal inspection. FROM of all extremities, normal capillary refill. Pelvis Stable. No CVA tenderness. No tenderness to extremities, pedal edema, swelling, erythema or deformity. Palpable muscle spasm to left trapezius. Integumentary: Appropriate color, dry, warm. No cyanosis, erythema, jaundice or rash Neurologic: raw material planner II-XII intact. Fully oriented, alert. Appropriate mood/affect. Motor strength 5/5. No appreciable EOM palsy, facial droop or sensory deficit. Past History - Past Medical History Allergies/Adverse Reactions: Allergies Allergy/AdvReac Type Severity Reaction Status Date / Time No Known Allergies Allergy Verified 10/04/17 02:21 Home Medications: Ambulatory Orders clonazePAM [Klonopin -] 0.5 mg PO DAILY 06/02/17 Methocarbamol [Robaxin -] 1,500 mg PO Q8H PRN #30 tablet 04/27/18 Naproxen Sodium [Aleve] 220 mg PO ASDIR 04/27/18 COPD: No - Suicide/Smoking/Psychosocial Hx Smoking History: Never smoked Have you smoked in the past 12 months: No Hx Alcohol Use: Yes Drug/Substance Use Hx: No Substance Use Type: None *Physical Exam - Vital Signs Last Vital Signs Temp Pulse Resp BP Pulse Ox 98.0 F 84 18 118/52 L 99 04/27/18 19:52 04/27/18 19:52 04/27/18 19:52 04/27/18 19:52 04/27/18 19:52 Moderate Sedation - Procedure Monitoring Vital Signs: Procedure Monitoring Vital Signs Temperature 98.0 F 04/27/18 19:52 Pulse Rate 84 04/27/18 19:52 Respiratory Rate 18 04/27/18 19:52 Blood Pressure 118/52 L 04/27/18 19:52 O2 Sat by Pulse Oximetry (%) 99 04/27/18 19:52 Medical Decision Making - Medical Decision Making 04/27/18 20:52 A/P: 32-year-old male with left lateral neck pain extending into left shoulder Palpable muscle spasm noted in the trapezius muscle Full range of motion of shoulder and neck Cranial nerves II through XII grossly intact Bilateral upper extremity strength 5/5. Full sensation noted to upper extremities Patient has appointment with paintless dent repair technician for steroid injections later this month. I'll give the patient 30 mg IM Toradol now and 5 mg of oral Valium. Reassess *DC/Admit/Observation/Transfer Diagnosis at time of Disposition: Muscle spasm of left shoulder - Discharge Dispostion Disposition: HOME Condition at time of disposition: Stable Decision to Admit order: No - Prescriptions Prescriptions: Methocarbamol [Robaxin -] 1,500 mg PO Q8H PRN #30 tablet PRN Reason: Muscle Spasms - Referrals - Patient Instructions Additional Instructions: Rest, no heavy lifting or exercise until pain is resolved Hot soaks to neck and low back as often as possible/hot showers or Jacuzzis No massage or therapy until spasm is gone Continue naproxen 2-220 mg tablets every 12 hours for the next 3 days then as needed for pain and swelling Robaxin 1500mg every 8 hours as needed for spasm If not significant improvement within 24 hours with medication and rest regime, followup with private physician for change in medications and /or therapy. - Post Discharge Activity
[2018-04-27] MEDS ORDERED: diazePAM 5 MG TABLET ONE (21:04)
[2018-04-27] MEDS ORDERED: KETOROLAC TROMETHAMINE 30 MG/1 ML VIAL ONE (21:04)
== END 2018-04-27 21:29 | disposition home or self-care (01) ==
LOC: JERFT 19:36
PROC: 3E0233Z Introduction of Anti-inflammatory into Muscle, Percutaneous Approach (ICD-10-PCS; principal; 2018-04-27)
DX: M54.12 Radiculopathy, cervical region (principal); M62.838 Other muscle spasm
CPT/HCPCS: 99281-25

== ENCOUNTER 2018-04-28 16:15 | Emergency (ER) | payer BC ==
[2018-04-28 16:39] VITALS: BP 125/82; PULSE 72; TEMP 98.6; BMI 26.5
--- NOTE | 2018-04-28 16:39 | PDOC ---
Rapid Medical Evaluation Chief Complaint: Back Pain Time Seen by Provider: 04/28/18 16:38 Medical Evaluation: Allergies Allergy/AdvReac Type Severity Reaction Status Date / Time No Known Allergies Allergy Verified 04/28/18 16:36 12 16:38 I have performed a brief in-person evaluation of this patient. The patient presents with a chief complaint of: L neck/shoulder pain x 1 week. Multiple herniated discs to cervical spine per pt. Seen yesterday and dc on robaxin but states meds nor helping Pertinent physical exam findings:defer to FT I have ordered the following:nothing The patient will proceed to the ED for further evaluation. Discharge Disposition - Diagnosis Neck pain - Referrals - Patient Instructions - Post Discharge Activity
[2018-04-28] MEDS ORDERED: KETOROLAC TROMETHAMINE 30 MG/1 ML VIAL ONE (16:56)
[2018-04-28] MEDS ORDERED: KETOROLAC TROMETHAMINE 30 MG/1 ML VIAL IM ONE (16:57)
--- NOTE | 2018-04-28 16:57 | PDOC ---
History of Present Illness - General Chief Complaint: Back Pain Stated Complaint: LEFT SHOULDER PAIN, BACK PAIN Time Seen by Provider: 04/28/18 16:38 History Source: Patient, Old Records Exam Limitations: No Limitations - History of Present Illness Initial Comments: 04/28/18 16:59 History of Present Illness: 32-year-old male with past medical history of cervical radiculopathy and multiple slipped disks in his neck who presents emergency department for evaluation of left lateral neck pain radiating to left shoulder for the past 4 days. Patient states his usual radiculopathy pain is on his right side and is scheduled to see painter helper sign for steroid injections at the end of this month. 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 Patient denies any loss of sensation or weakness in his upper extremities. Patient was seen and evaluated here last night and is requesting additional valium. Pt did not garbage pick up worker Rx from yesterday. No recent travel or sick contacts. PAST MEDICAL HISTORY: Cervical radiculopathy SURGICAL HISTORY: Denies ALLERGIES: No known drug allergies REVIEW OF SYSTEMS General/Constitutional: Denies fever or chills. Denies weakness, weight change. HEENT: Denies change in vision. Denies ear pain or discharge. Denies sore throat. Cardiovascular: Denies chest pain or shortness of breath. Respiratory: Denies cough, wheezing, or hemoptysis. Gastrointestinal: Denies nausea, vomiting, diarrhea or constipation. Denies rectal bleeding. Genitourinary: Denies dysuria, frequency, or change in urination. Musculoskeletal: Left lateral neck and left shoulder pain. Skin and breasts: Denies rash or easy bruising. Neurologic: Denies headache, vertigo, loss of consciousness, or loss of sensation. Psychiatric: Denies depression or anxiety. Endocrine: Denies increased thirst. Denies abnormal weight change. Hematologic/Lymphatic: Denies anemia, easy bleeding, or history of blood clots. Allergic/Immunologic: Denies hives or skin allergy. Denies latex allergy. PHYSICAL EXAM General Appearance: Well-appearing, appropriately dressed. No apparent distress , no intoxication. HEENT: EOMI, PERRLA, normal ENT inspection, normal voice, TMs normal, pharynx normal. No conjunctival pallor. No photophobia, scleral icterus. Neck: Supple. Trachea midline. No tenderness, rigidity, carotid bruit, stridor , lymphadenopathy, or thyromegaly. Respiratory/Chest: Lungs CTAB. No shortness of breath, chest tenderness, respiratory distress, accessory muscle use. No crackles, rales, rhonchi, stridor , wheezing, dullness Cardiovascular: RRR. S1, S2. No JVD, murmur, bradycardia, tachycardia. Vascular Pulses: Dorsalis-Pedis (R): 2+, Dorsalis-Pedis (L): 2+ Gastrointestinal/Abdominal: Normal bowel sounds. Abdomen soft, non-distended. No tenderness or rebound tenderness. No organomegaly, pulsatile mass, guarding, hernia, hepatomegaly, splenomegaly. Lymphatic: No adenopathy, tenderness. Musculoskeletal/Extremities: Normal inspection. FROM of all extremities, normal capillary refill. Pelvis Stable. No CVA tenderness. No tenderness to extremities, pedal edema, swelling, erythema or deformity. Palpable muscle spasm to left trapezius. Integumentary: Appropriate color, dry, warm. No cyanosis, erythema, jaundice or rash Neurologic: wincher II-XII intact. Fully oriented, alert. Appropriate mood/affect. Motor strength 5/5. No appreciable EOM palsy, facial droop or sensory deficit. Past History - Past Medical History Allergies/Adverse Reactions: Allergies Allergy/AdvReac Type Severity Reaction Status Date / Time No Known Allergies Allergy Verified 04/28/18 16:36 Home Medications: Ambulatory Orders clonazePAM [Klonopin -] 0.5 mg PO DAILY 06/02/17 Methocarbamol [Robaxin -] 1,500 mg PO Q8H PRN #30 tablet 04/27/18 Naproxen Sodium [Aleve] 220 mg PO ASDIR 04/27/18 COPD: No Other medical history: herniated discs - Immunization History Immunization Up to Date: Yes - Suicide/Smoking/Psychosocial Hx Smoking History: Never smoked Have you smoked in the past 12 months: No Hx Alcohol Use: No Drug/Substance Use Hx: No Substance Use Type: None *Physical Exam - Vital Signs Last Vital Signs Temp Pulse Resp BP Pulse Ox 98.6 F 72 18 125/82 97 04/28/18 16:37 04/28/18 16:37 04/28/18 16:37 04/28/18 16:37 04/28/18 16:37 Moderate Sedation - Procedure Monitoring Vital Signs: Procedure Monitoring Vital Signs Temperature 98.6 F 04/28/18 16:37 Pulse Rate 72 04/28/18 16:37 Respiratory Rate 18 04/28/18 16:37 Blood Pressure 125/82 04/28/18 16:37 O2 Sat by Pulse Oximetry (%) 97 04/28/18 16:37 Medical Decision Making - Medical Decision Making 04/28/18 17:02 A/P: 32-year-old male with left lateral neck pain extending into left shoulder Palpable muscle spasm noted in the trapezius muscle Full range of motion of shoulder and neck Cranial nerves II through XII grossly intact Bilateral upper extremity strength 5/5. Full sensation noted to upper extremities 30 mg IM Toradol now discharge *DC/Admit/Observation/Transfer Diagnosis at time of Disposition: Neck pain - Discharge Dispostion Disposition: HOME Condition at time of disposition: Stable Decision to Admit order: No - Referrals - Patient Instructions Additional Instructions: Rest, no heavy lifting or exercise until pain is resolved Hot soaks to neck and low back as often as possible/hot showers or Jacuzzis No massage or therapy until spasm is gone Continue naproxen 2-220 mg tablets every 12 hours for the next 3 days then as needed for pain and swelling Robaxin 1500mg every 8 hours as needed for spasm Take percocet and klonopin which have been previously prescribed. If not significant improvement within 24 hours with medication and rest regime, followup with private physician for change in medications and /or therapy. - Post Discharge Activity
== END 2018-04-28 17:05 | disposition home or self-care (01) ==
LOC: JERFT 16:15
PROC: 3E0233Z Introduction of Anti-inflammatory into Muscle, Percutaneous Approach (ICD-10-PCS; principal; 2018-04-28)
DX: M62.838 Other muscle spasm (principal); M54.2 Cervicalgia
CPT/HCPCS: 99281-25

== ENCOUNTER 2021-04-24 19:25 | Emergency (ER) | payer OTHER, BC ==
[2021-04-24 19:38] VITALS: BP 133/78; PULSE 100; TEMP 98; BMI 24.3
[2021-04-24] MEDS ORDERED: TETRACAINE 0.5% HCL 0.6ML DROPPER.BOTTLE OS ONE (20:51)
[2021-04-24] MEDS ORDERED: FLUORESCEIN NA 1 EA STRIP OS ONE (20:51)
[2021-04-24] MEDS ORDERED: FLUORESCEIN NA 1 EA STRIP ONE (20:52)
[2021-04-24] MEDS ORDERED: TETRACAINE 0.5% OPHTH SOLN 2 ML BOTTLE ONE (20:52)
== END 2021-04-24 21:13 | disposition home or self-care (01) ==
LOC: JERFT 19:25
DX: S05.01XA Injury of conjunctiva and corneal abrasion without foreign body, right eye, initial encounter (principal); W22.8XXA Striking against or struck by other objects, initial encounter
CPT/HCPCS: 99283-25

== ENCOUNTER 2022-03-12 01:40 | Emergency (ER) | payer SELFPAY ==
[2022-03-12 01:59] VITALS: BP 144/105; PULSE 66; RESP 18; TEMP 98; BMI 22.2
== END 2022-03-12 04:37 | disposition home or self-care (01) ==
LOC: JER 01:40
DX: T50.901A Poisoning by unspecified drugs, medicaments and biological substances, accidental (unintentional), initial encounter (principal)
CPT/HCPCS: 99283-25